=== PATIENT | female | born 2000 | race Caucasian/White ===

== ENCOUNTER 2024-10-20 01:53 | Emergency (ER) | payer MEDICAID ==
[2024-10-20 02:00] VITALS: PULSE 99; O2SAT 97
== END 2024-10-20 04:59 | disposition left against medical advice (07) ==
LOC: ER 02:05
DX: R10.13 Epigastric pain (principal); R11.10 Vomiting, unspecified; Z53.21 Procedure and treatment not carried out due to patient leaving prior to being seen by health care provider